=== PATIENT | female | born 1975 | race Hispanic/Latino ===

== ENCOUNTER 2023-10-27 11:59 | Emergency (ER) | payer OTHER, SELFPAY ==
[2023-10-27 12:03] VITALS: BP 93/77; PULSE 81; RESP 16; TEMP 36.5; O2SAT 100
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
[2023-10-27] MEDS: HYDROcodone/acetaminophen (*CRX) 5-325 MG TABLET 1 TAB PO (13:30)
[2023-10-27] MEDS: CYCLOBENZAPRINE HCL 10 MG TABLET PO (13:30)
== END 2023-10-27 13:32 | disposition home or self-care (01) ==
LOC: ANHED 13:25
PROVIDERS: Emergency Provider Emergency Medicine
DX: M79.10 Myalgia, unspecified site (principal); V89.2XXA Person injured in unspecified motor-vehicle accident, traffic, initial encounter
CPT/HCPCS: 99283; A9270